=== PATIENT | female | born 1965 | race Caucasian/White ===

== ENCOUNTER → 2018-01-08 | Outpatient (CLI) | payer OTHER ==
--- NOTE | 2018-01-11 08:46 | RAD ---
DATE: 01/08/2018 EXAM: DIGITAL SCREEN BILAT W/CAD HISTORY: Routine screening COMPARISON: Baseline study This study was interpreted with the benefit of Computerized Aided Detection (CAD). The breast parenchyma shows scattered fibroglandular densities. Breast parenchyma level B. FINDINGS: There are small smooth nodules projected over the posterolateral aspects of both breasts most compatible with intramammary lymph nodes. No spiculated mass or architectural distortion is seen. No suspicious microcalcifications are evident. IMPRESSION: Probable benign bilateral intramammary lymph nodes. In the absence of previous studies to establish stability, follow-up bilateral mammography in 6 months and then yearly intervals is suggested. BI-RADS CATEGORY: 2 BENIGN FINDING(S) RECOMMENDED FOLLOW-UP: 6M 6 MONTH FOLLOW-UP PQRS compliance statement: Patient information was entered into a reminder system with a target due date for the next mammogram. Mammography is a sensitive method for finding small breast cancers, but it does not detect them all and is not a substitute for careful clinical examination. A negative mammogram does not negate a clinically suspicious finding and should not result in delay in biopsying a clinically suspicious abnormality. "Our facility is accredited by the [employer] Mammography Program."
== END | disposition home or self-care (01) ==
LOC: MAMMO 13:58
DX: Z12.31 Encounter for screening mammogram for malignant neoplasm of breast (principal)
CPT/HCPCS: 77067

== ENCOUNTER → 2018-07-07 | Outpatient (CLI) | payer OTHER ==
--- NOTE | 2018-07-07 14:47 | RAD ---
DATE: 07/07/2018 EXAM: MAMMO MELANY DIAG BILAT HISTORY: 6 month follow-up COMPARISON: 01/08/2018 This study was interpreted with the benefit of Computerized Aided Detection (CAD). Breast Density: SCATTERED The breast parenchyma shows scattered fibroglandular densities. Breast parenchyma level B. FINDINGS: 2-D and 3-D tomosynthesis imaging was performed in CC and MLO projections. The small bilateral breast nodules are unchanged. Most of these demonstrate hilar lucencies compatible with benign intramammary lymph nodes. No new or enlarging breast densities are seen. No suspicious microcalcifications are evident. IMPRESSION: Stable, probably benign breast nodules. BI-RADS CATEGORY: 3 PROBABLY BENIGN FINDING(S)-SHORT INTERVAL FOLLOW-UP SUGGESTED RECOMMENDED FOLLOW-UP: 6M 6 MONTH FOLLOW-UP PQRS compliance statement: Patient information was entered into a reminder system with a target due date for the next mammogram. Mammography is a sensitive method for finding small breast cancers, but it does not detect them all and is not a substitute for careful clinical examination. A negative mammogram does not negate a clinically suspicious finding and should not result in delay in biopsying a clinically suspicious abnormality. "Our facility is accredited by the [employer] Mammography [employer]."
== END | disposition home or self-care (01) ==
LOC: MAMMO 13:55
PROVIDERS: ATTEND Nurse Practitioner Family
DX: N63.20 Unspecified lump in the left breast, unspecified quadrant (principal); N63.10 Unspecified lump in the right breast, unspecified quadrant
CPT/HCPCS: 77066; G0279; 77062

== ENCOUNTER → 2019-01-24 | Outpatient (CLI) | payer OTHER ==
--- NOTE | 2019-01-24 14:03 | RAD ---
DATE: 01/24/2019 EXAM: MAMMO MELANY LATOYA PRATT HISTORY: Abnormal mammogram. COMPARISON: 01/08/2018 and 07/07/2018 mammographic exams This study was interpreted with the benefit of Computerized Aided Detection (CAD). Breast Density: SCATTERED The breast parenchyma shows scattered fibroglandular densities. Breast parenchyma level B. FINDINGS: Small masses bilaterally have remained stable. No dominant mass in the interval. No suspicious calcification or distortion. IMPRESSION: Stable. BI-RADS CATEGORY: 1 NEGATIVE RECOMMENDED FOLLOW-UP: 12M 12 MONTH FOLLOW-UP PQRS compliance statement: Patient information was entered into a reminder system with a target due date in one year for the next mammogram. Mammography is a sensitive method for finding small breast cancers, but it does not detect them all and is not a substitute for careful clinical examination. A negative mammogram does not negate a clinically suspicious finding and should not result in delay in biopsying a clinically suspicious abnormality. "Our facility is accredited by the [employer] Mammography Program."
== END | disposition home or self-care (01) ==
LOC: MAMMO 13:01
PROVIDERS: ATTEND Nurse Practitioner Family
DX: N64.89 Other specified disorders of breast (principal); F17.210 Nicotine dependence, cigarettes, uncomplicated; Z79.899 Other long term (current) drug therapy
CPT/HCPCS: 77066; G0279; 77062

== ENCOUNTER 2019-08-02 17:11 | Emergency (ER) | payer OTHER ==
[~2019-08-02] VITALS: Ht 162.6 cm; Wt 72.0 kg
[2019-08-02] MEDS ORDERED: MORPHINE SULFATE 10 MG/ML SYRINGE. ONE (17:52)
[2019-08-02] MEDS ORDERED: ONDANSETRON PF 4 MG/2 ML VIAL. ONE (17:52)
--- NOTE | 2019-08-02 17:53 | PHYS DOC ---
Past History Past Medical History: Anxiety, Constipation, Kidney Stones Past Medical History PTSD Adult General Chief Complaint Chief Complaint: FLANK PAIN.. " I hurting here on Lt.... It been like a kidney stone. .. panfilo radiates to my groin... " HPI HPI Patient is a 54 year old female who presents with above hx and complaints of Lt. flank pain. Patient has history of previous renal stone. Patient denies any trauma. Patient denies any travel or specific ill contacts. Patient denies any intake bad food or history of colitis with her family members. Patient reports pain is referred from her left flank or groin area on percussion. Normally follows with Dr. Randall. Review of Systems Review of Systems Constitutional: Denies fever or chills [] Eyes: Denies change in visual acuity, redness, or eye pain [] HENT: Denies nasal congestion or sore throat [] Respiratory: Denies cough or shortness of breath [] Cardiovascular: No additional information not addressed in HPI [] GI: Denies abdominal pain, nausea, vomiting, bloody stools or diarrhea []Complaints of constipation. : Denies dysuria or hematuria [] Musculoskeletal: Complaints of Lt flank back pain Integument: Denies rash or skin lesions [] Neurologic: Denies headache, focal weakness or sensory changes [] Endocrine: Denies polyuria or polydipsia [] All other systems were reviewed and found to be within normal limits, except as documented in this note. Family History Family History Noncontributory to presentation Current Medications Current Medications See nursing for home meds are nursing Allergies Allergies Allergic to Bactrim Physical Exam Physical Exam Constitutional: Moderate acute distress, non-toxic appearance. [] HENT: Normocephalic, atraumatic, bilateral external ears normal, oropharynx dry, no oral exudates, nose normal. [] Eyes: PERRLA, EOMI, conjunctiva normal, no discharge. [] Neck: Normal range of motion, no tenderness, supple, no stridor. [] Cardiovascular:Heart rate regular rhythm, no murmur [] Lungs & Thorax: Bilateral breath sounds equal apex with a few scattered wheezes auscultation [] Abdomen: Bowel sounds decreased, soft, left flank tenderness, no masses, no pulsatile masses. [Moderately distended Skin: Warm, dry, no erythema, no rash. [] Back: No tenderness, left CVA tenderness. [] Extremities: No tenderness, no cyanosis, no clubbing, ROM intact, no edema. No psoas sign. Neurologic: Alert and oriented X 3, normal motor function, normal sensory function, no focal deficits noted. [] Psychologic: Affect anxious, judgement normal, mood normal. [] EKG EKG [] Radiology/Procedures Radiology/Procedures [][address] [address] IMAGING REPORT Signed PATIENT: ELVIRA BELTRAN JACCOUNT: [id number] : 1965 LOCATION: ER AGE: 54 SEX: F EXAM STATUS: REG ER ORD. PHYSICIAN: PHIL CARROLL MD REASON: Lt. sided abd. pain, nausea, vomiting, diarrhea x 2 days PROCEDURE: CT ABD PELV W/ORAL&IV CONTRAST Exam: CT of abdomen and pelvis with contrast INDICATION: Left-sided abdominal pain, nausea, vomiting and diarrhea for 2 days TECHNIQUE: Sequential axial images through the abdomen and pelvis obtained following the administration of 75 mL of Omni 300 IV contrast. Sagittal and coronal reformatted images were reconstructed from the axial data and reviewed. Comparisons: None FINDINGS: Heart size is normal. No pericardial effusion. Visualized lung bases are clear. No pleural effusion. Liver, spleen, pancreas, gallbladder and adrenals are unremarkable. Kidneys demonstrate symmetric enhancement. No perinephric inflammation or hydronephrosis. No renal or ureteral calculi are identified. Bladder is partially distended and appears thin-walled. Uterus is not enlarged. No abnormal adnexal mass. Large and small bowel are unremarkable. Appendix is normal. No free intra-abdominal air or fluid. No obstruction. Abdominal aorta has a normal course and caliber. Abdominal vasculature is patent. No enlarged intra-abdominal lymph nodes are identified. No suspicious osseous lesions or acute fractures. IMPRESSION: No acute process identified within the abdomen or pelvis. Exposure: One or more of the following in the visualized dose reduction techniques were utilized for this examination: 1. Automated exposure control 2. Adjustment of the MA and/or KV according to patient size 3. Use of iterative of reconstructive technique Electronically signed by: Radha Kearney MD (08/02/2019 9:02 PM) [id number] DICTATED AND SIGNED BY: RADHA KEARNEY MD DATE: 08/02/192101 CC: PHIL CARROLL MD; RAHEL RANDALL BLOOD BANK ASSISTANT ~ Course & Med Decision Making Course & Med Decision Making Pertinent Labs and Imaging studies reviewed. (See chart for details) Patient's stay on clear fluid diet only for the next 48 hours. No solid or milk products. Must allow bowel rest. Push fluids. Take Flagyl 500 mg 3 times a day x 10 daysand Levaquin 500 mg a day for the next 5 days. Follow-up primary care. Strongly suggest completing a colonoscopy. Return if any concerns. Tylenol and ibuprofen for pain. For marked pain may take Vicoprofen. Impression; 1. Lt. flank and abd. pain 2. Leukocytosis 11.9 3. Dehydration ( Hgb 15.8) 4. Elevated Alk. Phos. 120 5. Tobacco and Marijuana use 6. Hx PTSD 7. Hx. Anxiety 8. Constipation 9. Suspect colitis [] Dragon Disclaimer Dragon Disclaimer This electronic medical record was generated, in whole or in part, using a voice recognition dictation system. Departure Departure: Disposition: HOME/RESIDENCE PRIOR TO ADM Condition: STABLE Referrals: RAHEL RANDALL BLOOD BANK ASSISTANT (PCP) Scripts Hydrocodone/Ibuprofen (HYDROCODONE-IBUPROFEN 7.5-200 ) 1 Each Tablet 1 TAB PO PRN Q6HRS PRN for PAIN, #30 TAB 0 Refills Prov: PHIL CARROLL MD 08/02/19 Levofloxacin (LEVAQUIN) 500 Mg Tablet 500 MG PO DAILY for colitis for 5 Days, #5 TAB Prov: PHIL CARROLL MD 08/02/19 Metronidazole (FLAGYL) 500 Mg Tablet 500 MG PO TID for colitis, abd. pain for 10 Days, #30 TAB Prov: PHIL CARROLL MD 08/02/19 Dragon Disclaimer This chart was dictated in whole or in part using Voice Recognition software in a busy, high-work load, and often noisy Emergency Department environment. It may contain unintended and wholly unrecognized errors or omissions. PHIL CARROLL MD Aug 02, 2019 17:53
[2019-08-02] MEDS ORDERED: IV RINGERS SOLUTION,LACTATED 1,000 ML IV SCH (18:06)
[2019-08-02] MEDS ORDERED: KETOROLAC 30 MG/ML VIAL. IVP ONE (18:15)
[2019-08-02] MEDS ORDERED: KETOROLAC 30 MG/ML VIAL. ONE (18:31)
[2019-08-02 18:32] LABS: BACTERIA,URINE FEW /HPF (0-FEW); BILIRUBIN,URINE NEG (NEG); CLARITY,URINE CLEAR; COLOR,URINE YELLOW; GLUCOSE,URINE NEG (NEG); NITRITE,URINE NEG (NEG); RBC,URINE 0 /HPF (0-2); SQUAMOUS EPITHELIAL CELL,UR OCC /LPF; UROBILINOGEN,URINE 0.2 mg/dL (0.2 mg/dL); WBC,URINE OCC /HPF (0-4)
[2019-08-02 18:33] LABS: U PREG PATIENT NEGATIVE (NEG)
[2019-08-02 18:38] LABS: BASO # 0.1 x10^3/uL (0.0-0.2); BASO % 1 % (0-3); EOS # 0.4 x10^3/uL (0.0-0.7); EOS % 3 % (0-3); HEMOGLOBIN 15.8 g/dL (12.0-15.5); LYMPH # 3.5 x10^3/uL (1.0-4.8); LYMPH % 30 % (24-48); MEAN CORPUSCULAR HEMOGLOBIN 31 pg (25-35); MEAN CORPUSCULAR HGB CONC 33 g/dL (31-37); MEAN CORPUSCULAR VOLUME 93 fL (79-100); MONO # 0.7 x10^3/uL (0.0-1.1); MONO % 6 % (0-9); NEUT # 7.1 x10^3uL (1.8-7.7); NEUT % 60 % (31-73); PLATELET COUNT 276 x10^3/uL (140-400); RED BLOOD COUNT 5.16 x10^6/uL (3.50-5.40); RED CELL DISTRIBUTION WIDTH 13.2 % (11.5-14.5); WHITE BLOOD COUNT 11.9 x10^3/uL (4.0-11.0)
[2019-08-02 18:45] LABS: CALCIUM 9.7 mg/dL (8.5-10.1); CREATININE 0.9 mg/dL (0.6-1.0); GFR 65.8; POTASSIUM 4.5 mmol/L (3.5-5.1)
[2019-08-02 18:50] LABS: BARBITURATES NEG (NEG); BENZODIAZEPINES NEG (NEG); CANNABINOIDS POS (NEG); COCAINE NEG (NEG); METHADONE NEG (NEG); OPIATES NEG (NEG); PHENCYCLIDINE NEG (NEG)
[2019-08-02 18:51] LABS: ALBUMIN 4.1 g/dL (3.4-5.0); DIRECT BILIRUBIN 0.1 mg/dL (0.0-0.2); TOTAL BILIRUBIN 0.6 mg/dL (0.2-1.0); TOTAL PROTEIN 7.8 g/dL (6.4-8.2)
[2019-08-02 19:05] LABS: AMPHETAMINE/METHAMPHETAMINE NEG (NEG)
[2019-08-02] MEDS ORDERED: MORPHINE SULFATE 10 MG/ML SYRINGE. SQ ONE ×2 (19:15→22:00)
[2019-08-02] MEDS ORDERED: IOHEXOL 240 MG/ML 50ML VIAL. PO ONE (19:45)
[2019-08-02] MEDS ORDERED: IOHEXOL 300 MG/ML 75 ML VIAL. IV ONE (19:45)
--- NOTE | 2019-08-02 21:05 | RAD ---
Exam: CT of abdomen and pelvis with contrast INDICATION: Left-sided abdominal pain, nausea, vomiting and diarrhea for 2 days TECHNIQUE: Sequential axial images through the abdomen and pelvis obtained following the administration of 75 mL of Omni 300 IV contrast. Sagittal and coronal reformatted images were reconstructed from the axial data and reviewed. Comparisons: None FINDINGS: Heart size is normal. No pericardial effusion. Visualized lung bases are clear. No pleural effusion. Liver, spleen, pancreas, gallbladder and adrenals are unremarkable. Kidneys demonstrate symmetric enhancement. No perinephric inflammation or hydronephrosis. No renal or ureteral calculi are identified. Bladder is partially distended and appears thin-walled. Uterus is not enlarged. No abnormal adnexal mass. Large and small bowel are unremarkable. Appendix is normal. No free intra-abdominal air or fluid. No obstruction. Abdominal aorta has a normal course and caliber. Abdominal vasculature is patent. No enlarged intra-abdominal lymph nodes are identified. No suspicious osseous lesions or acute fractures. IMPRESSION: No acute process identified within the abdomen or pelvis. Exposure: One or more of the following in the visualized dose reduction techniques were utilized for this examination: 1. Automated exposure control 2. Adjustment of the MA and/or KV according to patient size 3. Use of iterative of reconstructive technique Electronically signed by: Radha Knapp MD (08/02/2019 9:02 PM) [id number]
[2019-08-02] MEDS ORDERED: cefTRIAXone SODIUM 1 GM VIAL ONE (21:08)
[2019-08-02] MEDS ORDERED: IV NORMAL SALINE 50ML 50 ML ONE (21:08)
[2019-08-02] MEDS ORDERED: METR500T PO (21:58)
[2019-08-02] MEDS ORDERED: LEVO500T59 PO (21:58)
[2019-08-02] MEDS ORDERED: HYDR-1179 PO (21:58)
[2019-08-02] MEDS ORDERED: MAGNESIUM HYDROXIDE 2,400 MG/30 ML ORAL.SUSP. PO ONE (22:00)
[2019-08-02 22:13] VITALS: BP 119/76
== END 2019-08-02 23:20 | disposition home or self-care (01) ==
LOC: ER 17:11
DX: K59.00 Constipation, unspecified (principal); E86.0 Dehydration; D72.829 Elevated white blood cell count, unspecified; R79.89 Other specified abnormal findings of blood chemistry; F41.9 Anxiety disorder, unspecified; F43.10 Post-traumatic stress disorder, unspecified; Z87.442 Personal history of urinary calculi; Z88.1 Allergy status to other antibiotic agents
CPT/HCPCS: 36415; 74177; 80048; 80076; 80307; 81001; 81025; 83690; 85025; 85610; 85730; 86705; 86709; 86803; 87340; 96361; 96365; 96367; 96372; 96375; 99285; J0696; J1885; J2270; J3490; J7120; Q9966; Q9967

== ENCOUNTER → 2020-03-07 | Outpatient (CLI) | payer OTHER ==
[~2020-03-07] MED LIST: HYDR-1179 PO; LEVO500T59 PO; METR500T PO
--- NOTE | 2020-03-07 11:35 | RAD ---
DATE: 03/07/2020 EXAM: MAMMO MELANY SCREENING BILATERAL HISTORY: Screening COMPARISON: 01/24/2019, 07/07/2018, 01/08/2018 This study was interpreted with the benefit of Computerized Aided Detection (CAD). Breast Density: SCATTERED The breast parenchyma shows scattered fibroglandular densities. Breast parenchyma level B. FINDINGS: Multiple bilateral circumscribed benign appearing masses are unchanged. There is no new mass, suspicious calcification, or architectural distortion. IMPRESSION: No evidence of malignancy. BI-RADS CATEGORY: 2 BENIGN FINDING(S) RECOMMENDED FOLLOW-UP: 12M 12 MONTH FOLLOW-UP PQRS compliance statement: Patient information was entered into a reminder system with a target due date 03/08/2021 for the next mammogram. Mammography is a sensitive method for finding small breast cancers, but it does not detect them all and is not a substitute for careful clinical examination. A negative mammogram does not negate a clinically suspicious finding and should not result in delay in biopsying a clinically suspicious abnormality. "Our facility is accredited by the [employer] Mammography Program."
== END ==
LOC: MAMMO 10:13
PROVIDERS: ATTEND Nurse Practitioner Family
DX: Z12.31 Encounter for screening mammogram for malignant neoplasm of breast (principal)
CPT/HCPCS: 77063; 77067

== ENCOUNTER → 2020-08-22 | Day surgery (SDC) | payer OTHER ==
[~2020-08-22] MED LIST changes: +BIOT5000 PO; +BUPR300T92 PO; +CYCL-331 PO; +LOSA50TA86 PO; +NABU750T7 PO; +OMEG1CAP50 PO; +VENL37.5 PO; +VITA400C37 PO; +levothyroxine; +vitamin D3
[2020-08-22 11:21] VITALS: BP 122/84
== END | disposition home or self-care (01) ==
LOC: SURG 11:08
PROVIDERS: ATTEND Anesthesiology
DX: M54.2 Cervicalgia (principal); M47.812 Spondylosis without myelopathy or radiculopathy, cervical region; M79.18 Myalgia, other site; F41.9 Anxiety disorder, unspecified; F43.10 Post-traumatic stress disorder, unspecified; Z83.3 Family history of diabetes mellitus; Z88.2 Allergy status to sulfonamides; Z79.899 Other long term (current) drug therapy; Z88.1 Allergy status to other antibiotic agents; Z82.49 Family history of ischemic heart disease and other diseases of the circulatory system
CPT/HCPCS: 99204; G0463

== ENCOUNTER → 2020-12-14 | Outpatient (CLI) | payer OTHER ==
[2020-08-22 11:21] VITALS: BP 122/84
[~2020-12-14] MED LIST changes: +NABU750T11 PO; -NABU750T7 PO
--- NOTE | 2020-12-14 09:49 | RAD ---
Examination: Left Lower Extremity Venous Doppler Ultrasound History: Left calf pain Comparison: None Procedure: Galdamez scale, color flow 2D and spectal waveform analysis images are obtained with and witho ut compression in the area of the common femoral vein, superficial femoral vein - femoral vein juncti on, main femoral vein (superficial femoral vein) and popliteal vein. Veins of the proximal calf are a lso imaged. Findings: There is normal duplex flow, color flow and compressibility of all visualized vein segments. No evide nce of deep venous thrombus is present. Impression: No evidence of DVT in the left lower extremity venous system. Electronically signed by: Fernie Pace MD (12/14/2020 9:47 AM) [id number]
--- NOTE | 2020-12-14 09:55 | RAD ---
2 view study of the left tibia and fibula Clinical indications: Pain in the left calf with swelling. FINDINGS: There is a nondisplaced fracture of the proximal left fibular metadiaphysis seen in the lat eral view only. Mild cortical disruption is seen here. No lytic process is evident. No dislocation is seen. Radiopaque loose bodies are apparent within the mortise ankle joint. IMPRESSION: Nondisplaced fracture of the proximal left fibula. Electronically signed by: Cirilo Ortega MD (12/14/2020 9:52 AM) [id number]
== END ==
LOC: US 09:00
PROVIDERS: ATTEND Nurse Practitioner Family
DX: S82.832A Other fracture of upper and lower end of left fibula, initial encounter for closed fracture (principal); M24.072 Loose body in left ankle; X58.XXXA Exposure to other specified factors, initial encounter; Y93.89 Activity, other specified; Y92.89 Other specified places as the place of occurrence of the external cause; Y99.8 Other external cause status
CPT/HCPCS: 73590; 93971

== ENCOUNTER → 2021-05-28 | Outpatient (CLI) | payer OTHER ==
[2020-08-22 11:21] VITALS: BP 122/84
[~2021-05-28] MED LIST changes: -CYCL-331 PO; +CYCL10TA19 PO
--- NOTE | 2021-05-28 13:34 | RAD ---
EXAM: Lumbar spine, 5 views. HISTORY: Pain. COMPARISON: None. FINDINGS: 5 views of the lumbar spine are obtained. There is no listhesis. The vertebral bodies are n ormal in height. There is a corticated ossicle along the anterior superior endplate of L4, likely due to a limbus vertebrae. There is facet arthropathy at the lower lumbar levels. IMPRESSION: Mild multilevel degenerative change. No acute osseous finding. Electronically signed by: Kathy Christiansen MD (05/28/2021 1:32 PM) [id number]
== END ==
LOC: RAD 13:09
PROVIDERS: ATTEND Nurse Practitioner Family
DX: M47.816 Spondylosis without myelopathy or radiculopathy, lumbar region (principal)
CPT/HCPCS: 72110